=== PATIENT | female | born 1980 | race Caucasian/White ===

== ENCOUNTER 2016-09-10 21:46 | Inpatient (IN) | payer MEDICAID ==
--- NOTE | ~2016-09-10 | PA ---
Unit #: [id number] #: [id number] Patient: HSANDRA HARGROVE [id number] [facility] [address] [place] [address] [id number] MR#: [id number] NAME: SHANDRA HARGROVE ROOM: P208 Age: 35 Sex: F Admission Date: 09/10/2016 : 1980 Date of Assessment: 09/11/2016 Attending Physician: Yoandy Albrecht M.D. Admitting Physician: Jayy Sykes M.D. Primary Care Physician: Primary Care Physician No PSYCHIATRIC ASSESSMENT DATE OF SERVICE 09/11/2016. INFORMANTS The patient, reliable and OLOP, reliable. CHIEF COMPLAINT Opioid dependence. HISTORY OF PRESENT ILLNESS Rebekah is a 35-year-old woman, presented from [place] due to the ongoing use of intravenous heroin. She has previous admissions to this facility under Dr. Soni and Dr. Sykes. She had no suicidal ideation, intent, or plan and was admitted for opioid detox. PAST PSYCHIATRIC HISTORY Please see previous assessments. SOCIAL HISTORY The patient is apparently temporarily homeless, in the [place], [place] area. Please see previous assessments for details. PAST MEDICAL HISTORY No chronic medical problems. MEDICATIONS None currently. ALLERGIES No known medication allergies. SUBSTANCE USE HISTORY As noted, the patient has an extensive history of opioid dependence. MENTAL STATUS EXAMINATION The patient presented as a mildly disheveled woman, who appeared her stated age. Her speech was soft, but easily understood. Musculoskeletal examination was calm. Her mood was irritable and depressed with a congruent affect. She was alert and fully oriented. Memory and concentration were fair. Thought processes were goal directed with no active psychosis. She denied suicidal ideation, intent, or plan. Insight and judgment, fair. Fund of knowledge and abstraction, fair. Unit #: [id number] #: [id number] Patient: SHANDRA HARGROVE ASSETS AND LIABILITIES The patient knows local resources and presents voluntarily for treatment. Liabilities include relapse and unstable housing and income. ADMITTING DIAGNOSES AXIS I: Opioid dependence with withdrawal, uncomplicated. AXIS II: No diagnosis. AXIS III: History of hepatitis C and history of childhood tuberculosis. AXIS IV: AXIS V: PSYCHIATRIC PLAN The patient was admitted and placed on the opioid detox protocol. Home medications will be determined and restarted if indicated. A physical examination will be conducted. TREATMENT GOALS Resolution of intoxication, improvement in insight, and improvement in coping skills. DISCHARGE PLANNING Follow up with replaced by [facility]. ESTIMATED LENGTH OF STAY 5 days. Dictated by... Yoandy Albrecht M.D. NIKI/kathy TD: 11/20/2016 16:10 JOB #: [id number] PSYCHIATRIC ASSESSMENT Page 1 of 1 X Yoandy Albrecht MD X PSYCHIATRIC ASSESSMENT
--- NOTE | ~2016-09-10 | DS ---
Unit #: [id number] #: [id number] Patient: SHANDRA HARGROVE [id number] [facility] [address] [place] [address] [id number] I MR#: [id number] NAME: SHANDRA HARGROVE ROOM: P208 Age: 35 Sex: F Admission Date: 09/10/2016 : 1980 Discharge Date: 09/14/2016 Attending Physician: Yoandy Albrecht M.D. Primary Care Physician: Primary Care Physician No DISCHARGE SUMMARY REASON FOR ADMISSION Sushant is a 35-year-old woman, admitted due to ongoing abuse of heroin. She was unable to contract for safety. LABORATORY DATA Please see hospital chart. HOSPITAL COURSE The patient was admitted and placed on the opioid detox. Physical examination was conducted and was unremarkable. She had no indication for further psychiatric treatment and was able to contract for safety once again on the date of discharge with followup through [facility] in [place], [place]. DISCHARGE DIAGNOSES AXIS I: Opiate dependence with withdrawal, uncomplicated. AXIS II: No diagnosis. AXIS III: Hepatitis C, history of childhood tuberculosis, inactive. AXIS IV: AXIS V: DISCHARGE INSTRUCTIONS The patient to follow up with [facility] in [place], [place]. DISCHARGE MEDICATIONS None. CONDITION AT DISCHARGE Fair. PROGNOSIS Fair. DIET AND ACTIVITY Ad giuliano. Dictated by... Yoandy Albrecht M.D. MRH/modl Unit #: [id number] #: [id number] Patient: SHANDRA HARGROVE TD: 11/20/2016 15:57 JOB #: [id number] DISCHARGE SUMMARY Page 1 of 1 X Yoandy Albrecht MD X DISCHARGE SUMMARY
--- NOTE | ~2016-09-10 | HP ---
Unit #: [id number] #: [id number] Patient: JORGITO HARGROVE [id number] [place] [address] [id number] MR#: [id number] NAME: JORGITO HARGROVE ROOM: P203 Age: 35 Sex: F Admission Date: 09/10/2016 : 1980 Attending Physician: Yoandy Albrecht M.D. Admitting Physician: Jayy Sykes M.D. Primary Care Physician: Primary Care Physician No HISTORY AND PHYSICAL HISTORY OF PRESENT ILLNESS Jorgito is a 35 year old admitted to [address] [place] [address] because of her continued illicit substance abuse which includes IV heroin. She has had other admissions to this facility for the same. PAST MEDICAL HISTORY 1. Long history of opioid abuse to include IV heroin. 2. Hepatitis C. 3. History of tuberculosis, diagnosed at 12 years old. She completed appropriate treatment and has been followed with chest x-rays from "time to time." PAST SURGICAL HISTORY 1. x2. 2. Liver biopsy. ALLERGIES No known drug allergies. SOCIAL HISTORY Smokes 1 pack per day. Denies alcohol. Admits to a long history of opioid abuse to include IV heroin. FAMILY HISTORY Medically noncontributory. REVIEW OF SYSTEMS CONSTITUTIONAL: No fever or chills. HEENT: Denies any sore throat, ear pain or runny nose. CARDIOVASCULAR: Denies chest pain, irregular heart rhythm or palpitations. CHEST: Denies shortness of breath or cough. No hemoptysis. GASTROINTESTINAL: Denies nausea, vomiting, diarrhea or chronic constipation. ENDOCRINE: Denies history of increased thirst or urination. No recent significant weight loss or gain. GENITOURINARY: Denies dysuria, frequency, or hematuria. SKIN: Denies any rashes. HEMATOLOGIC: Denies history of increased bleeding or bruising. MUSCULOSKELETAL: Denies any hot, swollen joints. No generalized muscle pain. NEUROLOGIC: Denies problems with vision or speech. No frequent, severe headaches. No numbness, tingling or weakness in any extremities. Denies loss of bladder or bowel control. Unit #: [id number] #: [id number] Patient: JORGITO HARGROVE CURRENT MEDICATIONS Detox protocol. PHYSICAL EXAMINATION GENERAL: Alert, thin, in no apparent distress. VITAL SIGNS: Blood pressure 110/70, heart rate 80, respirations 16, temperature 98.6. WEIGHT: 132. HEIGHT: 5 feet 6 inches. SKIN: Warm and dry without rash or lesion. HEENT: Normocephalic. TMs not viewed. Oral and nasal passages clear. Conjunctivae clear. PERRLA. EOMs intact. NECK: Supple without lymphadenopathy or thyromegaly. HEART: Regular rate and rhythm without murmur. LUNGS: Clear. ABDOMEN: Soft, nontender. : Not done. EXTREMITIES: No evidence of cyanosis, clubbing or edema. Moves all without focal deficit. NEUROLOGICAL: Grossly within normal limits. Cranial Nerves: II: Visual yen are intact. III, IV AND : Extraocular movements are intact. Pupils are equal, round and reactive to light. V: Facial sensation is grossly normal. VII: Facial movements and expression are normal. VIII: Auditory acuity grossly intact. IX, X: Uvula is midline. Phonation is normal. XI: Patient shrugs shoulders and turns head normally. XII: Tongue protrudes in the midline. Sensory and Motor Function: Sensory and motor sensation is grossly normal. Motor: moves all extremities well. Coordination: Gait is normal. Deep Tendon Reflexes: Intact. IMPRESSION Psychiatric admission. RECOMMENDATIONS PSYCHIATRIC: Per psychiatrist. MEDICAL: See no contraindications to participate in facility's activities. MEDICAL PROGNOSIS Good. MEDICAL CONDITION Stable. Dictated by... Ivy Teixeira P.A.-C. for Katina Maier/rojelio TD: 09/11/2016 16:51 JOB #: [id number] Unit #: [id number] #: [id number] Patient: JORGITO HARGROVE HISTORY AND PHYSICAL Page 1 of 1 X Ivy Teixeira HISTORY AND PHYSICAL
[2016-09-11 09:38] LABS: BASOPHIL# 0.1 X10e3 (0-0.3); BASOPHIL% 0.6 % (0-2.5); EOSINOPHIL# 0.2 X10e3 (0-0.7); HEMATOCRIT 41.7 % (35.0-45.0); HEMOGLOBIN 13.6 gm/dL (12.0-16.0); LYMPHOCYTE# 3.8 X10e3 (1.0-3.5); LYMPHOCYTE% 42.3 % (17.0-45.0); MEAN CELL VOLUME 85.9 FL (83-96); MEAN CORPUSCULAR HEMOGLOBIN 28.1 PG (28-34); MEAN CORPUSCULAR HGB CONC 32.7 g/dL (30-36); MEAN PLATELET VOLUME 9.5 FL (6.5-11.5); MONOCYTE# 0.5 X10e3 (0-1.0); MONOCYTE% 5.4 % (3.0-12.0); NEUTROPHIL# 4.4 X10e3 (1.5-7.1); NEUTROPHIL% 49.7 % (40-75); PLATELET COUNT 233 X10e3 (140-420); RED BLOOD COUNT 4.85 X10e (3.90-5.30); RED CELL DISTRIBUTION WIDTH 13.3 % (11.0-15.5); WHITE BLOOD COUNT 8.9 X10e3 (4.0-10.5)
[2016-09-11 09:43] LABS: DIFF IND NO
[2016-09-11 10:09] LABS: ALBUMIN SERUM 3.4 g/dL (3.5-5.0); BILIRUBIN,TOTAL 0.2 mg/dL (0.2-2.0); BUN/CREATININE RATIO 21.42; CALCIUM SERUM 8.9 mg/dL (8.4-10.2); CREATININE SERUM 0.7 mg/dL (0.6-1.4); POTASSIUM 3.8 mmol/L (3.5-5.1); PROTEIN TOTAL SERUM 6.5 g/dL (6.0-8.3)
== END 2016-09-14 10:48 | disposition home or self-care (01) | DRG 897 ==
LOC: P1E 21:46 → P2S 22:03
PROVIDERS: Specialist
PROC: HZ2ZZZZ Detoxification Services for Substance Abuse Treatment (ICD-10-PCS; principal; 2016-09-11)
DX: F11.23 Opioid dependence with withdrawal (principal); B19.20 Unspecified viral hepatitis C without hepatic coma; F17.210 Nicotine dependence, cigarettes, uncomplicated; Z86.11 Personal history of tuberculosis
CPT/HCPCS: 80053; 84703; 85025; 86592